=== PATIENT | female | born 1955 | race Caucasian/White ===

== ENCOUNTER 2021-10-29 18:48 | Emergency (ER) | payer OTHER ==
[2021-10-29] MEDS ORDERED: Lidocaine 1% with EPINEPHrine 1:100,000 10 ML MDV INFILT ONE (18:49)
== END 2021-10-29 20:53 | disposition home or self-care (01) ==
LOC: FB.ED 18:48
DX: S01.01XA Laceration without foreign body of scalp, initial encounter (principal); W18.30XA Fall on same level, unspecified, initial encounter; Y93.54 Activity, bowling
CPT/HCPCS: 12002; 12032; 70450; 99283; 99283-25